=== PATIENT | female | born 1995 | race Caucasian/White ===

== ENCOUNTER 2016-07-13 13:05 | Emergency (ER) | payer OTHER ==
[2016-07-13 13:22] VITALS: O2SAT 98
--- NOTE | 2016-07-13 13:27 | ERPHSYRPT ---
- History of Present Illness Time Seen by Provider: 07/13/16 13:21 Source: patient Exam Limitations: no limitations Physician History: The patient is a 20-year-old female with her mother complaining of low back pain that was present when she woke up this morning. There was no injury. She took one Advil without relief. She has no prior back history. Her past medical history is significant for depression. Transfer text Timing/Duration: today Method of Injury: unknown Quality: aching Back Pain Location: lumbar spine Severity of Pain-Max: moderate Severity of Pain-Current: moderate Modifying Factors: Improves With: pain medication Associated Symptoms: denies symptoms Allergies/Adverse Reactions: prednisone Adverse Reaction (Verified 07/13/16 13:22) Home Medications: Escitalopram Oxalate [Lexapro] 20 mg DAILY 07/13/16 [History] - Review of Systems Constitutional: No Fever, No Chills Eyes: No Symptoms Ears, Nose, & Throat: No Symptoms Respiratory: No Cough, No Dyspnea Cardiac: No Chest Pain, No Edema, No Syncope Abdominal/Gastrointestinal: No Abdominal Pain, No Nausea, No Vomiting, No Diarrhea Genitourinary Symptoms: No Dysuria Musculoskeletal: Back Pain Skin: No Rash Neurological: No Dizziness, No Focal Weakness, No Sensory Changes Psychological: No Symptoms Endocrine: No Symptoms Hematologic/Lymphatic: No Symptoms Immunological/Allergic: No Symptoms All Other Systems: Reviewed and Negative - Past Medical History Pertinent Past Medical History: Yes Neurological History: Migraines ENT History: No Pertinent History Cardiac History: No Pertinent History Respiratory History: No Pertinent History Endocrine Medical History: No Pertinent History Musculoskeletal History: No Pertinent History GI Medical History: GERD History: No Pertinent History Psycho-Social History: No Pertinent History Female Reproductive Disorders: No Pertinent History - Past Surgical History Past Surgical History: No Neuro Surgical History: No Pertinent History Cardiac: No Pertinent History Respiratory: No Pertinent History Gastrointestinal: No Pertinent History Genitourinary: No Pertinent History Musculoskeletal: No Pertinent History Female Surgical History: No Pertinent History Other Surgical History: none - Social History Smoking Status: Never smoker Exposure to second hand smoke: No Drug Use: none - Physical Exam General Appearance: mild distress Eye Exam: PERRL/EOMI, eyes nml inspection Ears, Nose, Throat Exam: normal ENT inspection Neck Exam: normal inspection, non-tender, supple, full range of motion, No meningismus, No midline tenderness Respiratory Exam: normal breath sounds, lungs clear, No respiratory distress Cardiovascular Exam: regular rate/rhythm, normal heart sounds Gastrointestinal Exam: soft, No tenderness, No mass Pelvic Exam: not done Rectal Exam: not done Back Exam: muscle spasm Extremity Exam: normal inspection, normal range of motion, No calf tenderness, No pedal edema Neurologic Exam: alert, oriented x 3, cooperative, edge brusher II-XII nml as tested, normal mood/affect, nml station & gait, sensation nml, No motor deficits Skin Exam: normal color, warm, dry, No rash SpO2 Interpretation: normal Ordered Tests: Medication Summary Discontinued Medications Generic Name Dose Route Start Last Admin Trade Name Freq PRN Reason Stop Dose Admin Ketorolac Tromethamine 60 mg 07/13/16 13:29 Toradol 30 Mg Injection IM 07/13/16 13:30 STAT ONE - Progress Progress: improved Counseled pt/family regarding: diagnosis - Departure Time of Disposition: 13:30 Departure Disposition: Home Clinical Impression: Lumbar strain Condition: Stable Critical Care Time: No Referrals: SHAY MAY [Primary Care Provider] - Additional Instructions: You have low back pain that is caused by spasm of your back muscles. You were given an injection of Toradol 60 mg IM in the ER. Take Flexeril 10 mg every 8 hours as needed. Apply ice to the area as needed. Follow-up as needed. Prescriptions: Cyclobenzaprine HCl [Flexeril] 10 mg PO Q8H PRN PRN #10 tablet PRN Reason: Pain
[2016-07-13] MEDS ORDERED: TORAdol 30 mg Injection IM ONE (13:29)
[2016-07-13] MEDS ORDERED: TORAdol 30 mg Injection ONE (13:34)
[2016-07-13 14:08] VITALS: BP 119/74; PULSE 72
== END 2016-07-13 14:06 | disposition home or self-care (01) ==
LOC: ED 13:05
DX: S39.012A Strain of muscle, fascia and tendon of lower back, initial encounter (principal)
CPT/HCPCS: 96372; 99284; J1885